=== PATIENT | male | born 1960 | race Caucasian/White ===

== ENCOUNTER → 2024-01-30 07:53 | Outpatient (REF) | payer OTHER, SELFPAY | LOC: MRI 3T 07:53 | PROVIDERS: ATTENDING PHYSICIAN Specialist; FAMILY PHYSICIAN Internal Medicine | DX: R97.20 Elevated prostate specific antigen [PSA] (principal) | CPT/HCPCS: 72197; A9575 ==

== ENCOUNTER 2024-04-25 10:38 | Outpatient (RCR) | payer OTHER, SELFPAY | END 2024-04-25 23:59 | disposition home or self-care (01) | LOC: RPT 10:38 | PROVIDERS: ATTENDING PHYSICIAN Specialist; FAMILY PHYSICIAN Internal Medicine | DX: C61 Malignant neoplasm of prostate (principal); Z73.6 Limitation of activities due to disability | CPT/HCPCS: 97162; 97530 ==

== ENCOUNTER 2024-04-30 06:10 | Day surgery (SDC) | payer OTHER, SELFPAY ==
[2024-04-11 07:36] VITALS: BMI 36.4
[2024-04-11 08:50] LABS: Hematocrit 52.2 % (39.0-52.0); Hemoglobin 17.1 g/dL (13.0-18.0); Mean Corp Hgb Conc. 32.8 g/dL (33.0-37.0); Mean Corpuscular Volume 85.4 fL (80.0-94.0); Mean Platelet Volume 10.7 fL (7.4-10.4); Platelet Count 281 10^3/uL (130-400); Red Blood Cell Count 6.11 10^6/uL (4.70-6.10); Red Cell Dist. Width 13.9 % (11.5-14.5); White Blood Cell Count 7.8 10^3/uL (4.8-10.8)
[2024-04-11 08:51] LABS: Urine Albumin Negative (Neg - Trace); Urine Bilirubin Negative (Negative); Urine Character Clear (Clear); Urine Color Yellow; Urine Glucose Negative (Negative); Urine Ketone Negative (Negative); Urine Leukocyte Negative (Negative); Urine Nitrite Negative (Negative); Urine Occult Blood Negative (Negative); Urine Urobilinogen Negative (Neg - 1+)
[2024-04-11 09:00] LABS: INR 1.02; PT 13.2 Sec (11.4-14.6)
[2024-04-11 09:01] LABS: APTT 29.2 Sec (23.4-35.0)
[2024-04-11 09:04] LABS: Blood Urea Nitrogen 28 mg/dl (9-20); Calcium 9.8 mg/dl (8.4-10.2); Carbon Dioxide 27 mmol/L (22-30); Chloride 102 mmol/L (98-107); Estimated Creatinine Clearance 114 ml/min; Glucose 105 mg/dl (70-99); Potassium 4.8 mmol/L (3.5-5.1); Sodium 140 mmol/L (135-145); eGFR > 60.00
--- NOTE | 2024-04-18 09:33 | CM ---
Patient is scheduled for a Robotic Prostatectomy on 04/30/24. Spoke with patient's prior to surgery via telephone to complete case management assessment and assess for discharge planning needs. She reports that she and patient live in a one
floor apartment. Building is elevator accessible. He currently functions independently. He has no DME and has never had VN services. He has a prescription plan and uses [facility] in [place].
PCP is Bg Gray
Discussed discharge plans. The plan is for patient to return home at discharge. His states that she will be home with patient and can provide support. Discussed possible need for VN services and reviewed options. She is in agreement with
services and selects VN.
[place] text sent to VN liaison, Faviola Garnica, alerting her to surgery date and possible need for VN.
[2024-04-30] VITALS (16 sets, daily range): BP systolic 113–173; BP diastolic 55–97; BMI 36.4
[2024-04-30] MEDS: NORMOSOL-R 1000 IV ×2 (07:05→13:58)
[2024-04-30] MEDS: NEOMYCIN ENEMA 1 BOTTLE RECTAL (07:06)
--- NOTE | 2024-04-30 15:40 | VNURNOTE ---
Home Health Liaison met with patient at 1530 to discuss [facility] nurse visits, schedule and homebound status. Patient is agreeable and understands that visits at home will be 2-3 x per week to assess and teach medical management and catheter care. Call
to patient's to discuss above and she is also in agreement.
[facility] brochure provided with contact information. Patient is aware that [facility] will contact them for start of care in 1-2 days after discharge from .
[facility] referral completed in [facility].
[2024-04-30] MEDS: COLACE 100 MG PO (17:02)
[2024-04-30] MEDS: TORADOL 15 MG IV ×2 (17:02→23:14)
[2024-04-30] MEDS: POLYSPORIN OINTMENT 1 APPLIC TOPICAL (19:43)
[2024-05-01] MEDS: NORMOSOL-R 1000 IV (00:54)
[2024-05-01] MEDS: TORADOL 15 MG IV ×2 (05:44→11:01)
[2024-05-01 07:00] VITALS: BP 154/85
[2024-05-01 07:24] LABS: Hematocrit 40.1 % (39.0-52.0); Hemoglobin 13.6 g/dL (13.0-18.0); Mean Corp Hgb Conc. 33.9 g/dL (33.0-37.0); Mean Corpuscular Hgb 27.9 pg (27.0-31.0); Mean Corpuscular Volume 82.3 fL (80.0-94.0); Mean Platelet Volume 10.6 fL (7.4-10.4); Platelet Count 211 10^3/uL (130-400); Red Blood Cell Count 4.87 10^6/uL (4.70-6.10); Red Cell Dist. Width 14.3 % (11.5-14.5); White Blood Cell Count 11.9 10^3/uL (4.8-10.8)
[2024-05-01 07:39] LABS: Blood Urea Nitrogen 21 mg/dl (9-20); Calcium 8.4 mg/dl (8.4-10.2); Carbon Dioxide 26 mmol/L (22-30); Chloride 103 mmol/L (98-107); Estimated Creatinine Clearance > 125 ml/min; Glucose 110 mg/dl (70-99); Potassium 4.1 mmol/L (3.5-5.1); Sodium 136 mmol/L (135-145); eGFR > 60.00
[2024-05-01] MEDS: POLYSPORIN OINTMENT 1 APPLIC TOPICAL (07:57)
[2024-05-01] MEDS: ASPIR LOW (ENTERIC COATED) 81 MG PO (07:58)
[2024-05-01] MEDS: COLACE 100 MG PO ×2 (07:58→11:01)
[2024-05-01 12:12] VITALS: BP 117/69
--- NOTE | 2024-05-01 14:51 | CM ---
CM reviewed chart, patient discharge home with [facility], [facility] updated on patients status. CM will continue to follow for discharge planning needs.
Plan; home with [facility].
== END 2024-05-01 13:28 | disposition home or self-care (01) ==
LOC: SDS 06:10
PROVIDERS: ATTENDING PHYSICIAN Specialist; FAMILY PHYSICIAN Internal Medicine
DX: C61 Malignant neoplasm of prostate (principal)
CPT/HCPCS: 55866; 88305; 88307; 88309; 36415; 80048; 81003; 85027; 85610; 85730; 93005

== ENCOUNTER 2024-05-10 14:38 | Observation (INO) | payer OTHER, SELFPAY ==
[2024-05-10] VITALS (16 sets, daily range): BP systolic 148–191; BP diastolic 72–117; BMI 37.4; BMI 36.5
--- NOTE | 2024-05-10 01:20 | ED.GENMED ---
History of Present Illness
General
Chief Complaint: Abdominal Pain
Source: patient
Time Seen by Provider: 05/10/24 01:11
History of Present Illness
History of Present Illness:
63-year-old male presents to the emergency room complaining of severe suprapubic pain after urinating. Patient noted earlier this evening that he was having some pain when he would urinate but it would last a few seconds and go away. However after
urinating the last time he developed 10 out of 10 suprapubic pain. Pain did not go away. Therefore patient's called 911. Patient was given fentanyl for pain by the paramedics due to the seriousness of his discomfort. Patient states that in
the immediate postoperative phase he was not experiencing much pain at all. He was seen by his urologist yesterday and had his Connor catheter removed.
Phy Exam
Physical Exam
Physical Exam:
General: Awake, Alert, Oriented X3. No acute distress.
Vitals: unremarkable
Head: Atraumatic
Eyes: Pupils equal, EOMI
Throat: Airway intact, no exudates
Neck: Trachea midline
Lungs: Clear and equal b/l
Heart: Regular rate, no murmurs
Abd: Soft, surgical incisions noted and appear intact and without signs of infection, No pulsatile mass
Neuro: Nonfocal
Skin: Warm, dry, no rash
Extremities: pulses equal b/l, no edema
Course
Orders/Labs/Results
Orders:
Orders
05/10/24 01:20
CT Abd/pelvis W Iv Cont Urgent
Comment:
Reason For Exam: lower abd pain, s/p prostatectomy 04/30
05/10/24 01:21
Bladder Scan- Treatment ONCE
05/10/24 01:28
Basic Metabolic Panel Urgent
Complete Blood Count/With Diff Urgent
05/10/24 03:15
HYDROmorphone [Dilaudid] 1 mg IV NOW STA
05/10/24 04:40
Lidocaine 2% [Lidocaine Uro-Jet 2%] 1 syringe .ROUTE .[employer]
05/10/24 05:03
Connor Catheter [Catheter- Indwelling] As Directed
Reason for insertion: Acute Retention
Size: 16
05/10/24 05:06
Urinalysis Reflex To Culture Urgent
Date Specimen was Collected: 05/10/24
Time Specimen was Collected: 05:02
Urine Microscopic Reflex Cult Urgent
Urine Culture Urgent
BRI Source: U
Specimen Description:
Date Specimen was Collected: 05/10/24
Time Specimen was Collected: 05:02
05/10/24 Breakfast
Regular
At Your Request: Full Participation
05/10/24 07:00
Flush (0.9% Sodium Chloride) [Flush (Nss)] See Dose Instructions IV PER PROTOCOL
05/10/24 07:40
Admit Patient As Directed
Co-Sign Provider:
Level of Care: Observation services
Assign to:: Medical/Surgical
Physician / Group: [facility]
Diagnosis: Prostate cancer, anasatomotic leak
Code Status As Directed
Resuscitation Status: Full Code
Acetaminophen [Tylenol] 650 mg PO Q4HPRN PRN
Morphine Sulfate 4 mg IV Q1HPRN PRN
Oxycodone/Acetaminophen [Percocet 5/325] 1 tablet PO Q4HPRN PRN
Tolterodine Extended Release [Detrol LA] 4 mg PO DAILYPRN PRN
diazePAM [Valium Injection] 5 mg IV Q4HPRN PRN
Activity As Directed
Activity Level: Bedrest
Bathroom Privileges
Anti-embolism (ANYA) Hose As Directed
Type: Thigh high
Catheter- Indwelling As Directed
Reason for insertion: Urology Determination
Type: Indwelling
Intake/ Output As Directed
Frequency: Per unit guidelines
Pneumatic Compression Sleeves As Directed
Type: Thigh high
Vital Signs As Directed
Frequency: Per unit guidelines
DX Deep Vein Thrombosis Video Routine
05/10/24 08:00
Aspirin Low Dose EC [Aspir Low (Enteric Coated)] 81 mg PO DAILY
05/10/24 09:00
Sterile Water [Sterile Water For Injection] 10 ml IV Q24H
05/10/24 10:00
CefTRIAXone [Rocephin] 1,000 mg IV Q24H
05/11/24 04:14
Basic Metabolic Panel IN AM
Complete Blood Count/With Diff IN AM
Abnormal Lab Results
05/10/24 05/10/24
01:28 05:06
Abs Immat Gran (auto) 0.1 H 10^3/uL
(0-0.05)
Absolute Neuts (auto) 7.4 H 10^3/uL
(1.4-6.5)
Absolute Lymphs (auto) 0.9 L 10^3/uL
(1.2-3.4)
Absolute Monos (auto) 0.9 H 10^3/uL
(0.1-0.6)
Immature Gran % 0.8 H %
(0-0.5)
Neutrophils % 77.1 H %
(42.2-75.2)
Lymphocytes % 9.0 L %
(20.5-51.1)
Monocytes % 9.6 H %
(1.7-9.3)
BUN 33 H mg/dl
(9-20)
Creatinine 1.4 H mg/dL
(0.7-1.3)
Glucose 113 H mg/dl
(70-99)
Urine Ketones Trace A
(Negative)
Ur Occult Blood Reflex 4+ A
(Negative)
Leukocyte Esterase Rfl Trace A
(Negative)
Urine RBC >100 A /HPF
(0-2)
Urine Bacteria (Reflex) Moderate A
(Negative)
Urine Albumin (Reflex) 2+ A
(Neg - Trace)
05/10/24 01:28
05/10/24 01:28
Vital Signs
Initial and Last Documented VS:
Initial Vital Signs
Temp Pulse Resp BP
98.1 F 89 20 181/101
05/10/24 01:02 05/10/24 01:02 05/10/24 01:02 05/10/24 01:02
Last Documented Vital Signs
Temp Pulse Resp BP Pulse Ox
99.2 F 83 16 139/78 94
05/11/24 11:34 05/11/24 11:34 05/11/24 11:34 05/11/24 11:34 05/11/24 11:34
MDM/Problems Addressed
Differential Diagnosis Includes:
bladder spasm, uti, anastomosis leak, urinary retention
MDM/Problems Addressed:
Patient presents with severe spasmodic pain after urinating. Labs are reassuring. His CT by vision radiology as essentially postoperative changes. However testing tech observed an area in the post injection phase concerning for extravasation of
contrast outside of the bladder. This was reviewed with Dr. Camargo. He recommended reinsertion of a Connor catheter. This was accomplished without difficulty. However patient continued to have significant pain and does not feel comfortable going
home. Dr. Lin will evaluate the patient and hospitalize under his service.
*Critical Care Note
Total Time (30-74mins, 75-104mins- exclusive of procedures): Not Applicable
ED Attending Note
-
Portions of this chart may have been created with voice recognition software.� Occasional wrong word or��sound alike� substitutions may have occurred due to the inherent limitations of voice recognition software.
Discharge Plan
Departure
Patient Disposition: Admit
Date of Disposition: 05/10/24
Time of Disposition: 05:57
Presentation/result/management discussed w/ accepting MD/DO: Dr Hammonds
Condition: Fair
Discharge Problem:
Bladder spasm, Ureteral anastomotic leak
Interventions
Interventions:
*Risk Screen - Suicide Last Done: 05/10/24 01:02
*General Assessment Last Done: 05/10/24 01:02
*Neglect/Abuse Screening Last Done: 05/10/24 01:02
ED- Fall Risk Assessment Last Done: 05/10/24 01:11
*ED COVID-19 Vaccine History Last Done: 05/10/24 01:02
*Nursing Disposition Last Done: 05/10/24 15:47
AP-Egkttx-Tsbahktkui Assessment Last Done: 05/10/24 03:25
Discharge Date and Time
Discharge Date/Time: 05/10/24 15:48
[2024-05-10 01:55] LABS: % Basophils 0.5 % (0-2); % Immature Granulocytes 0.8 % (0-0.5); % Monocytes 9.6 % (1.7-9.3); % Neutrophils 77.1 % (42.2-75.2); Absolute Basophils 0.1 10^3/uL (0-0.2); Absolute Eosinophils 0.3 10^3/uL (0-0.7); Absolute Immature Granulocytes 0.1 10^3/uL (0-0.05); Absolute Lymphocytes 0.9 10^3/uL (1.2-3.4); Absolute Monocytes 0.9 10^3/uL (0.1-0.6); Absolute Neutrophils 7.4 10^3/uL (1.4-6.5); Hematocrit 39.2 % (39.0-52.0); Hemoglobin 13.5 g/dL (13.0-18.0); Mean Corp Hgb Conc. 34.4 g/dL (33.0-37.0); Mean Corpuscular Hgb 28.1 pg (27.0-31.0); Mean Corpuscular Volume 81.5 fL (80.0-94.0); Mean Platelet Volume 9.7 fL (7.4-10.4); Nucleated Red Blood Cells % 0 % (-); Platelet Count 239 10^3/uL (130-400); Red Blood Cell Count 4.81 10^6/uL (4.70-6.10); Red Cell Dist. Width 13.7 % (11.5-14.5); White Blood Cell Count 9.6 10^3/uL (4.8-10.8)
[2024-05-10 02:10] LABS: Blood Urea Nitrogen 33 mg/dl (9-20); Calcium 9.3 mg/dl (8.4-10.2); Carbon Dioxide 24 mmol/L (22-30); Chloride 107 mmol/L (98-107); Estimated Creatinine Clearance 80 ml/min; Glucose 113 mg/dl (70-99); Potassium 4.5 mmol/L (3.5-5.1); Sodium 140 mmol/L (135-145); eGFR 57.18
--- NOTE | 2024-05-10 02:42 | EDRN ---
Pt complains he is having pain in his penis, not his abdomen like he did earlier. Dr Awan informed and asks that pt go to CT.
[2024-05-10] MEDS: DILAUDID 1 MG IV (03:25)
[2024-05-10 05:12] LABS: Urine Albumin 2+ (Neg - Trace); Urine Bilirubin Negative (Negative); Urine Character Slightly Cloudy (Clear); Urine Color Yellow; Urine Glucose Negative (Negative); Urine Ketone Trace (Negative); Urine Leukocyte Trace (Negative); Urine Nitrite Negative (Negative); Urine Occult Blood 4+ (Negative); Urine Urobilinogen Negative (Neg - 1+)
[2024-05-10 06:33] LABS: Urine Red Blood Cell >100 /HPF (0-2)
[2024-05-10 06:36] LABS: Urine Bacteria Moderate (Negative)
[2024-05-10 06:39] LABS: Urine Amorphous Seen
--- NOTE | 2024-05-10 07:48 | HPS.HSE ---
Family Physician
-
Family Physician: Bg Gray
Chief Complaint
-
Pelvic pain
Dysuria
History of Present Illness
63M POD 10 s/p robotic radical prostatectomy
On POD 9 yesterday the catheter was removed in AM and patient was seen in the office for post op visit. At that time voiding without issue
Starting in the evening last night he began to have severe pelvic/suprapubic pain after urinating
He came to the ED and UA was within expected limits post catheter removal
Labs were unremarkable
CTAP with delayed films showed a small posterior leak of the urethrovesical anastomosis
An 18Fr martell was placed and since draining clear urine. His pain has resolved and currently feels well
Medical History
Past Medical History
Past Medical History: Reports Other (Pulmonary embolism Prostate cancer)
Past Surgical History: Reports Urological (Prostatectomy 04/30/24)
Social History
Tobacco: Non-smoker
Alcohol: None
Personal:
Living: With Family
Family History
Family History: Not pertinent
Allergies / Home Medications
Allergies reflects when Allergies were last updated in [facility].
Home Medications with original date entered in [facility]
Allergy/Medication List:
NKDA
ASA 81
MVI
Naproxen 440 BID
Tramadol 50mg PRN
Review of Systems
-
A 12 point ROS was completed and negative except as noted: Yes
Physical Exam
Vital Signs
Vital Signs
Temp Pulse Resp BP Pulse Ox
98.1 F 76 20 157/72 91
05/10/24 01:02 05/10/24 06:00 05/10/24 06:00 05/10/24 06:00 05/10/24 05:00
Physical Exam
General: Well Developed, Well Nourished and No Apparent Distress
HEENT: NormoCephalic
Respiratory: Clear and Non Labored Respirations
GI: Soft, Non Tender and Other (well healing incisions)
Genito-urinary: Clear Urine and Martell
Skin: Warm and Dry
Neuro: AO x 3
Psych: Calm and Intact Judgment/Insight
Laboratory Results
-
05/10/24 01:28
05/10/24 01:28
Data Reviewed
-
CT Scan: Image Personally Visualized and interpreted
Lab Data: Labs Reviewed by me
Impression/Plan
-
IMPRESSION:
63M s/p robotic prostatectomy 04/30 with severe pelvic pain after voiding due to urethrovesical anastomotic leak
PLAN:
18Fr martell placed without difficulty, pain immediately improved and resolving
Observation for pain control and antibiotic with urine cx pending
Maintain martell at discharge
[2024-05-10] MEDS: STERILE WATER FOR INJECTION 10 ML IV (09:49)
[2024-05-10] MEDS: ASPIR LOW (ENTERIC COATED) 81 MG PO (09:49)
[2024-05-10] MEDS: ROCEPHIN 1000 MG IV (09:50)
[2024-05-11 04:38] LABS: % Basophils 0.4 % (0-2); % Eosinophils 3.3 % (0-6); % Immature Granulocytes 0.6 % (0-0.5); % Monocytes 8.9 % (1.7-9.3); % Neutrophils 76.8 % (42.2-75.2); Absolute Eosinophils 0.4 10^3/uL (0-0.7); Absolute Immature Granulocytes 0.1 10^3/uL (0-0.05); Absolute Lymphocytes 1.1 10^3/uL (1.2-3.4); Absolute Neutrophils 8.3 10^3/uL (1.4-6.5); Hematocrit 41.9 % (39.0-52.0); Hemoglobin 13.4 g/dL (13.0-18.0); Mean Corpuscular Hgb 27.6 pg (27.0-31.0); Mean Corpuscular Volume 86.2 fL (80.0-94.0); Mean Platelet Volume 9.9 fL (7.4-10.4); Nucleated Red Blood Cells % 0 % (-); Platelet Count 227 10^3/uL (130-400); Red Blood Cell Count 4.86 10^6/uL (4.70-6.10); Red Cell Dist. Width 13.8 % (11.5-14.5); White Blood Cell Count 10.8 10^3/uL (4.8-10.8)
[2024-05-11 04:59] LABS: Blood Urea Nitrogen 23 mg/dl (9-20); Carbon Dioxide 27 mmol/L (22-30); Chloride 107 mmol/L (98-107); Estimated Creatinine Clearance 111 ml/min; Glucose 114 mg/dl (70-99); Potassium 4.6 mmol/L (3.5-5.1); Sodium 140 mmol/L (135-145); eGFR > 60.00
[2024-05-11 07:51] VITALS: BP 143/88
[2024-05-11] MEDS: ASPIR LOW (ENTERIC COATED) 81 MG PO (08:03)
[2024-05-11] MEDS: ROCEPHIN 1000 MG IV (10:07)
[2024-05-11] MEDS: FLUSH (NSS) 1 FLUSH IV (10:07)
[2024-05-11] MEDS: STERILE WATER FOR INJECTION 10 ML IV (10:07)
--- NOTE | 2024-05-11 10:54 | CM ---
Addendum entered by Radha Martin 05/11/24 11:19:
Pt for d/c today. Home, no needs.
Original Note:
CM following re: d/c planning.
CM met with pt at bedside to complete IA.
Pt report she resides with in private residence.
Pt is independent with mobility and ADLs.
He denies DME or VN.
He drives.
PCP is Dr. Gray and pharmacy [facility] in [place].
Pt does not anticipate any d/c needs.
Connor in, urology on board.
OBS letter discussed and copy provided.
--- NOTE | 2024-05-11 11:01 | W.PN.URO.CBU ---
Today's Communication / Plan
-
Discharge
Assessment / Plan
-
63M with urethrovesical anastomosis leak s/p prostatectomy
Pain resolved after martell placement
Urine culture negative
Normal creatinine (slight ÁNGEL on admission)
Discharge home with martell in place
Diagnosis
-
Date of Service: May 11, 2024
-
Patient Diagnosis:
Anastomosis leak s/p prostatectomy for prostate cancer
Post Op Day:
Subjective
-
No pain since martell placement
No other bothersome symptoms
Objective
-
Vital Signs
Temp Pulse Resp BP Pulse Ox
98.2 F 83 18 143/88 94
05/11/24 07:51 05/11/24 07:51 05/11/24 07:51 05/11/24 07:51 05/11/24 08:15
Intake and Output
05/10/24 05/11/24 05/12/24
06:59 06:59 06:59
Intake Total 840 / 840
Output Total 1700 / 1700
Balance -860 / -860
Intake:
Oral fluids 840 / 840
Output:
Urine, Martell 1700 / 1700
Laboratory Results
05/11/24 04:14
05/11/24 04:14
Physical Exam
-
General - well developed, well nourished, no acute distress
Chest - clear bilaterally
Abdomen - soft, non-tender
- martell in place, clear urine
Skin - warm & dry with no rash
Neuro - AOx3, no motor deficits
Extremities - no clubbing, no cyanosis, no edema
[2024-05-11 11:34] VITALS: BP 139/78
[2024-05-12 20:49] LABS: Hepatitis C Antibody Negative (Negative)
== END 2024-05-11 13:15 | disposition home or self-care (01) ==
LOC: 4 EAST ACU 14:38
PROVIDERS: ADMITTING PHYSICIAN Urology; EMERGENCY PHYSICIAN Emergency Medicine; FAMILY PHYSICIAN Internal Medicine
DX: N32.89 Other specified disorders of bladder (principal); R10.30 Lower abdominal pain, unspecified; R10.2 Pelvic and perineal pain; C61 Malignant neoplasm of prostate; R30.0 Dysuria; N17.9 Acute kidney failure, unspecified; K76.0 Fatty (change of) liver, not elsewhere classified; K57.30 Diverticulosis of large intestine without perforation or abscess without bleeding; K43.9 Ventral hernia without obstruction or gangrene; N28.1 Cyst of kidney, acquired; R60.9 Edema, unspecified; J98.2 Interstitial emphysema; Z90.79 Acquired absence of other genital organ(s); Z86.711 Personal history of pulmonary embolism
CPT/HCPCS: 51702; 51798; 74177; 80048; 81003; 81015; 85025; 86803; 87086; 96374; 99285; G0378; Q9967

== ENCOUNTER 2024-05-16 22:54 | Emergency (ER) | payer OTHER, SELFPAY ==
[2024-05-16 23:01] VITALS: BP 0/0
--- NOTE | 2024-05-16 23:08 | ED.GENMED ---
History of Present Illness
General
Chief Complaint: CODE
Source: spouse, ambulance crew and previous hospital records (Robotic assisted laparoscopic radical prostatectomy April 30, 2024. Overnight hospitalization May 10 to May 11 due to bladder spasms found to have small posterior leak of the
urethrovesical anastomosis)
Exam Limitations: clinical condition
History of Present Illness
History of Present Illness:
This is a 63-year-old gentleman who has history of prostate cancer, prior history of PE who underwent robotic assisted laparoscopic radical prostatectomy on April [address] Stevens. Was doing well postoperatively, Connor catheter removed on postop
day #9 but then developed severe suprapubic/pelvic pain after urinating and was hospitalized overnight May 10 to May 11 when he was found to have a small posterior leak of the urethrovesical anastomosis site on CT of the abdomen and pelvis. Connor
catheter was reinserted at that time with relief of pain and he was discharged to home on the with Connor catheter in place.
According to he has been feeling well until tonight when he developed somewhat sudden onset of shortness of breath and called 911.
Upon police arrival patient found to be unresponsive with reported agonal respirations. Immediately thereafter, upon EMS arrival, patient was unresponsive, no spontaneous respirations, no palpable pulse. Initial cardiac rhythm of asystole.
ACLS protocols initiated, CPR initiated and continued throughout care at home and throughout transport to the ED. Orally intubated with initial end-tidal CO2 of 13-15, degraded to less than 8 during resuscitation.
Patient received a total of 7 mg of IV epinephrine with change in vision from asystole to PEA. No return of spontaneous circulation.
On scene downtime 50 minutes prior to arrival.
Past History
Past History
ED Past Medical History: Cancer (Prostate cancer), Other (PE) and Other (Obesity)
ED Past Surgical History: Urological (Laparoscopic radical prostatectomy April 30, 2024) and Other (Cataract extraction bilaterally)
Social History
Tobacco: Non-smoker
Personal:
Living: with family
Employment: Employed
Family History
Family History: CAD (Both grandfathers)
Phy Exam
Physical Exam
Physical Exam:
CODE EXAM:
VITAL SIGNS: No palpable blood pressure, no pulses, no respiration.
GENERAL EXAM: Mottled
EYES: Pupils fixed
ENT: Orally intubated
NECK: No venous distention
RESPIRATORY: Equal breath sounds with bagged respirations
CARDIAC: Absent heart sounds
VASCULAR: Absent pulses
ABDOMEN: Rotund, soft no masses. Steri-Strips noted umbilical site is well as left and right mid to lower abdominal regions. Connor catheter in place with yellow urine in Connor bag.
GUAIAC: Not done
MUSCULOSKELETAL: Unable to evaluate strength
EXTREMITIES: No edema or contractures. Intraosseous needle port/IV left proximal tibia.
SKIN: No rash
PSYCH: Mood, affect unable to evaluate
Course
Vital Signs
Initial and Last Documented VS:
Initial Vital Signs
Pulse Resp BP Pulse Ox
0 0 0/0 0
05/16/24 23:01 05/16/24 23:01 05/16/24 23:01 05/16/24 23:01
Last Documented Vital Signs
Pulse Resp BP Pulse Ox
0 0 0/0 0
05/16/24 23:01 05/16/24 23:01 05/16/24 23:01 05/16/24 23:01
*Pulse Oximetry
Patient hypoxic: yes
*Ground Worker Interpretation
Interpretation: abnormal
Rhythm: other (asystole)
*Critical Care Note
Total Time (30-74mins, 75-104mins- exclusive of procedures): Not Applicable
Update Note
Update Note:
Despite extensive prehospital cardiopulmonary resuscitation for more than 50 minutes, patient has arrived in persistent cardiac arrest.
Orally intubated, bagged respirations with equal breath sounds bilaterally.
hall monitor shows asystole.
A bedside cardiac ultrasound shows no cardiac activity.
At this point no indication for further resuscitation and patient has been pronounced at 2258.
notified of 's passing in person.
05/16/2024 2346 PM
manager packaging has been notified.
Patient deemed not a hydroelectric station chief's case, body has been released for family physician to sign the certificate.
I have texted family physician, Dr. Bg Gray via [place] text.
ED Attending Note
-
Portions of this chart may have been created with voice recognition software.� Occasional wrong word or��sound alike� substitutions may have occurred due to the inherent limitations of voice recognition software.
Discharge Plan
Departure
Patient Disposition:
Date of Disposition: 05/16/24
Time of Disposition: 22:58
Discharge Problem:
cardiopulmonary arrest at home
Prescriptions:
No Action
aspirin 81 mg Tablet,Delayed Release (Dr/Ec)
81 mg PO DAILY
multivitamin Tablet
1 tab PO DAILY
Referrals:
Bg Gray MD [Active] -
UNKNOWN - PT NOT,INTERVIEWE [Family Provider] -
Interventions
Interventions:
*Risk Screen - Suicide Last Done: 05/16/24 23:01
*General Assessment Last Done: 05/16/24 23:01
*Neglect/Abuse Screening Last Done: 05/16/24 23:01
*ED COVID-19 Vaccine History Last Done: 05/16/24 23:01
*Nursing Disposition Last Done: 05/17/24 02:08
ED- Cardiac Assessment Last Done: 05/16/24 22:55
ED- Pulmonary Assessment Last Done: 05/16/24 22:55
Discharge Date and Time
Print Language: FINNISH
--- NOTE | 2024-05-16 23:12 | EDRN ---
Pt brought in from home by [facility] after a witnessed cardiac arrest. pt had been c/o SOB, called 911. police arrived at the house first and shortly after their arrival pt became unresponsive. medics arrived on scene 3 minutes later
and noted pt to be in asystole. pt received a total of 7 epi CLERK MANAGER. pt brought into the emergency department @ 2250 intubated with arielle machine providing CPR. at this point pt had a total downtime of 50 minutes. pt was found to be in asystole on the
heart monitor without pulses present. Dr. Varghese at bedside who checked for cardiac activity with ultrasound @ 225 - no cardiac activity present. Dr. Varghese called time of @ 2257.
== END 2024-05-16 22:58 | disposition expired ==
LOC: EMR 22:54
PROVIDERS: EMERGENCY PHYSICIAN Emergency Medicine
DX: I46.9 Cardiac arrest, cause unspecified (principal); Z48.810 Encounter for surgical aftercare following surgery on the sense organs; Z82.49 Family history of ischemic heart disease and other diseases of the circulatory system; Z85.46 Personal history of malignant neoplasm of prostate; Z86.711 Personal history of pulmonary embolism; Z90.79 Acquired absence of other genital organ(s)
CPT/HCPCS: 99282